=== PATIENT | male | born 1965 | race Caucasian/White ===

== ENCOUNTER 2024-11-05 21:30 | Emergency (ER) | payer MEDICAID ==
[~2024-11-05] VITALS: Ht 172.7 cm; Wt 85.5 kg
[~2024-11-05 21:30] MED LIST: ACET-2247 PO; AMOX-457 PO; BUDE10.26 IH; CHOL500013 PO; FOLI-130 PO; GABA-1216 PO; LANS-78 PO; MULT-1203 PO; TAMS0.4C94 PO
[2024-11-05 21:37] VITALS: TEMP 98.6
[2024-11-05 23:22] LABS: BASOPHILS % (AUTO) 0.6 % (0.0-2.0); EOSINOPHILS % (AUTO) 0.6 % (1.0-6.0); HEMATOCRIT 34.6 % (41-53); HEMOGLOBIN 11.2 g/dL (13.5-17.5); LYMPHOCYTES # (AUTO) 1.4 K/uL (1.0-4.8); LYMPHOCYTES % (AUTO) 16.4 % (22.0-44.0); MEAN CORPUSCULAR HEMOGLOBIN 28.3 pg (26.0-34.0); MEAN CORPUSCULAR HGB CONC 32.3 G/dL (31.0-37.0); MEAN CORPUSCULAR VOLUME 88 fL (80-100); MONOCYTES # (AUTO) 0.5 K/uL (0.1-1.0); MONOCYTES % (AUTO) 5.6 % (2.0-9.0); NEUTROPHILS # (AUTO) 6.8 K/uL (1.8-7.7); NEUTROPHILS % (AUTO) 76.8 % (40.0-70.0); PLATELET COUNT (AUTO) 177 K/uL (150-450); RED BLOOD CELL COUNT(AUTO) 3.96 MIL/uL (4.50-5.90); RED CELL DISTRIBUTION WIDTH 15.6 % (11.5-14.5); WHITE BLOOD COUNT (AUTO) 8.8 K/uL (4.5-11.0)
[2024-11-05 23:31] LABS: ANION GAP 10 mmol/L (8-16); CALCIUM, TOTAL 9.5 mg/dL (8.8-10.5); CARBON DIOXIDE 23 mmol/L (22-29); CHLORIDE 107 mmol/L (98-107); GLOMERULAR FILTR. RATE CALC 41 mL/min (>60); GLUCOSE,RANDOM 91 mg/dL (70-110); POTASSIUM 3.8 mmol/L (3.5-5.1); SODIUM SERUM 140 mmol/L (136-145); UREA NITROGEN, BLOOD 28 mg/dL (7-18)
[2024-11-05 23:33] LABS: APPEARANCE,URINE CLEAR (CLEAR); BILIRUBIN,URINE NEGATIVE (NEGATIVE); COLOR,URINE COLORLESS (YELLOW); GLUCOSE, URINE (UA) NEGATIVE (NEGATIVE); KETONES,URINE NEGATIVE (NEGATIVE); LEUKOCYTE ESTERASE ,URINE NEGATIVE (NEGATIVE); NITRATE,URINE NEGATIVE (NEGATIVE); OCCULT BLOOD,URINE NEGATIVE (NEGATIVE); PROTEIN,URINE NEGATIVE (NEGATIVE); SPECIFIC GRAVITIY, URINE 1.012 (1.003-1.030); UROBILINOGEN,URINE <=1.0 mg/dL (<=1.0)
[2024-11-05 23:37] LABS: ALANINE AMINOTRANSFERASE 37 U/L (12-78); ALBUMIN 2.9 g/dL (3.4-5.0); ALKALINE PHOSPHATASE 78 U/L (46-116); ASPARTATE AMINOTRANSFERASE 21 U/L (15-37); BILIRUBIN,TOTAL 0.3 mg/dL (0.1-1.0); TOTAL PROTEIN, SERUM 7.1 g/dL (6.4-8.2)
[2024-11-05 23:40] LABS: LACTIC ACID 0.8 mmol/L (0.4-2.0)
[2024-11-05] MEDS: FentaNYL CITRATE PF 100 MCG/2 ML VIAL IVP ONE (23:44)
[2024-11-06] MEDS: KETOROLAC TROMETHAMINE 30 MG/ML VIAL IVP ONE (00:01)
[2024-11-06 02:59] VITALS: BP 119/63; PULSE 59; RESP 16; O2SAT 96
[2024-11-08] MEDS ORDERED: DOXY-354 PO (15:57)
== END 2024-11-06 03:00 | disposition home or self-care (01) ==
LOC: EMS 21:30
DX: R10.9 Unspecified abdominal pain (principal); Z93.3 Colostomy status; Z79.51 Long term (current) use of inhaled steroids; Z79.899 Other long term (current) drug therapy
CPT/HCPCS: 99285; 96374; 80048; 80076; 81003; 83605; 85025; 87040; 36415; J1885; J3010

== ENCOUNTER 2024-12-10 21:00 | Emergency (ER) | payer MEDICAID ==
[~2024-12-10] VITALS: Ht 172.7 cm; Wt 90.0 kg
[~2024-12-10 21:00] MED LIST changes: -AMOX-457 PO; +DOXY-354 PO
[2024-12-10] MEDS ORDERED: IOHEXOL 350 MG/ML 100 ML VIAL ONE (22:53)
[2024-12-10] MEDS: CLOTRIMAZOLE 1% 15 GM CREAM TP ONE (23:01)
[2024-12-10 23:02] LABS: BASOPHILS % (AUTO) 0.8 % (0.0-2.0); EOSINOPHILS % (AUTO) 0.9 % (1.0-6.0); HEMATOCRIT 38.1 % (41-53); HEMOGLOBIN 12.4 g/dL (13.5-17.5); LYMPHOCYTES # (AUTO) 1.5 K/uL (1.0-4.8); LYMPHOCYTES % (AUTO) 20.5 % (22.0-44.0); MEAN CORPUSCULAR HEMOGLOBIN 28.1 pg (26.0-34.0); MEAN CORPUSCULAR HGB CONC 32.5 G/dL (31.0-37.0); MEAN CORPUSCULAR VOLUME 86 fL (80-100); MONOCYTES # (AUTO) 0.6 K/uL (0.1-1.0); MONOCYTES % (AUTO) 8.2 % (2.0-9.0); NEUTROPHILS # (AUTO) 5.2 K/uL (1.8-7.7); NEUTROPHILS % (AUTO) 69.6 % (40.0-70.0); PLATELET COUNT (AUTO) 194 K/uL (150-450); RED BLOOD CELL COUNT(AUTO) 4.41 MIL/uL (4.50-5.90); RED CELL DISTRIBUTION WIDTH 15.5 % (11.5-14.5); WHITE BLOOD COUNT (AUTO) 7.5 K/uL (4.5-11.0)
[2024-12-10] MEDS: CIPROFLOXACIN 400 MG/D5% WATER 200 ML IV ONE (23:04)
[2024-12-10] MEDS: MetroNIDAZOLE 500 MG/NACL 100 ML IV ONE (23:04)
[2024-12-10] MEDS: MORPHINE SULFATE 2 MG/ML SYRINGE IVP ONE (23:04)
[2024-12-10 23:17] LABS: LACTIC ACID 0.8 mmol/L (0.4-2.0)
[2024-12-10] MEDS: VANCOMYCIN 1.25 GM/WATER(PEG) 250 ML IV ONE (23:20)
[2024-12-10 23:22] LABS: ANION GAP 8 mmol/L (8-16); CALCIUM, TOTAL 9.2 mg/dL (8.8-10.5); CARBON DIOXIDE 24 mmol/L (22-29); CHLORIDE 106 mmol/L (98-107); GLOMERULAR FILTR. RATE CALC 32 mL/min (>60); GLUCOSE,RANDOM 97 mg/dL (70-110); POTASSIUM 4.2 mmol/L (3.5-5.1); SODIUM SERUM 138 mmol/L (136-145); UREA NITROGEN, BLOOD 32 mg/dL (7-18)
[2024-12-10 23:27] LABS: ALANINE AMINOTRANSFERASE 69 U/L (12-78); ALBUMIN 3.3 g/dL (3.4-5.0); ALKALINE PHOSPHATASE 90 U/L (46-116); ASPARTATE AMINOTRANSFERASE 44 U/L (15-37); BILIRUBIN,TOTAL 0.3 mg/dL (0.1-1.0); TOTAL PROTEIN, SERUM 7.8 g/dL (6.4-8.2)
[2024-12-11] MEDS ORDERED: METR500 PO (00:08)
[2024-12-11] MEDS ORDERED: CIPR500T10 PO (00:08)
[2024-12-11] MEDS ORDERED: DOXY-354 PO (00:08)
[2024-12-11 04:30] VITALS: BP 138/82; PULSE 83; RESP 18; TEMP 98.3; O2SAT 96
== END 2024-12-11 05:19 | disposition home or self-care (01) ==
LOC: EMS 21:00
DX: L03.311 Cellulitis of abdominal wall (principal); Z88.0 Allergy status to penicillin; Z88.1 Allergy status to other antibiotic agents; Z79.51 Long term (current) use of inhaled steroids; Z90.49 Acquired absence of other specified parts of digestive tract; Z79.899 Other long term (current) drug therapy
CPT/HCPCS: 99285; 74176; 96365; 96367; 96375; 80048; 80076; 83605; 85025; 87040; 36415; 96368; Q9967; J0744; J3490 ×2; J2270

== ENCOUNTER 2024-12-15 18:45 | Emergency (ER) | payer MEDICAID ==
[~2024-12-15] VITALS: Ht 172.7 cm; Wt 90.0 kg
[~2024-12-15 18:45] MED LIST changes: +CIPR500T10 PO; +METR500 PO
[2024-12-15 19:21] VITALS: BP 114/79; PULSE 80; RESP 18; TEMP 98.5; O2SAT 100
[2024-12-15 23:22] LABS: BASOPHILS % (AUTO) 0.7 % (0.0-2.0); EOSINOPHILS % (AUTO) 0.2 % (1.0-6.0); HEMATOCRIT 43.5 % (41-53); HEMOGLOBIN 14.4 g/dL (13.5-17.5); LYMPHOCYTES # (AUTO) 1.7 K/uL (1.0-4.8); LYMPHOCYTES % (AUTO) 24.9 % (22.0-44.0); MEAN CORPUSCULAR HEMOGLOBIN 28.6 pg (26.0-34.0); MEAN CORPUSCULAR HGB CONC 33.1 G/dL (31.0-37.0); MEAN CORPUSCULAR VOLUME 86 fL (80-100); MONOCYTES # (AUTO) 0.7 K/uL (0.1-1.0); MONOCYTES % (AUTO) 10.4 % (2.0-9.0); NEUTROPHILS # (AUTO) 4.5 K/uL (1.8-7.7); NEUTROPHILS % (AUTO) 63.8 % (40.0-70.0); PLATELET COUNT (AUTO) 185 K/uL (150-450); RED BLOOD CELL COUNT(AUTO) 5.03 MIL/uL (4.50-5.90); RED CELL DISTRIBUTION WIDTH 16.2 % (11.5-14.5)
[2024-12-15 23:29] LABS: CREATININE 2.57 mg/dL (0.60-1.30); POTASSIUM 3.7 mmol/L (3.5-5.1)
[2024-12-15] MEDS ORDERED: HYDR30CR3 TP (23:51)
[2024-12-16] MEDS: TraMADol HCL 50 MG TABLET PO ONE (00:04)
[2024-12-16] MEDS ORDERED: 0.9% SODIUM CHLORIDE 10 ML SYRINGE IVP PRN (00:15)
[2024-12-16] MEDS ORDERED: SODIUM CHLORIDE 0.9% 2,700 ML IV ONE (00:15)
== END 2024-12-16 02:47 | disposition left against medical advice (07) ==
LOC: EMS 19:02
DX: L03.311 Cellulitis of abdominal wall (principal); L30.9 Dermatitis, unspecified; Z79.51 Long term (current) use of inhaled steroids; Z79.899 Other long term (current) drug therapy; Z88.0 Allergy status to penicillin; Z88.1 Allergy status to other antibiotic agents; Z93.3 Colostomy status
CPT/HCPCS: 74022; 80048; 85025; 93005; 99284

== ENCOUNTER 2025-01-08 09:35 | Emergency (ER) | payer MEDICAID ==
[~2025-01-08] VITALS: Ht 172.7 cm; Wt 90.9 kg
[~2025-01-08 09:35] MED LIST changes: +ACID1GRA PO; -CIPR500T10 PO; -DOXY-354 PO; +HYDR30CR3 TP
[2025-01-08 11:14] VITALS: TEMP 98.2
[2025-01-08 11:51] LABS: CALCIUM, TOTAL 8.7 mg/dL (8.8-10.5); CREATININE 1.8 mg/dL (0.60-1.30); POTASSIUM 4.6 mmol/L (3.5-5.1)
[2025-01-08 11:52] LABS: BASOPHILS % (AUTO) 1.1 % (0.0-2.0); EOSINOPHILS % (AUTO) 0.6 % (1.0-6.0); HEMATOCRIT 36.7 % (41-53); LYMPHOCYTES # (AUTO) 1.3 K/uL (1.0-4.8); LYMPHOCYTES % (AUTO) 29.1 % (22.0-44.0); MEAN CORPUSCULAR HEMOGLOBIN 29.3 pg (26.0-34.0); MEAN CORPUSCULAR HGB CONC 32.7 G/dL (31.0-37.0); MEAN CORPUSCULAR VOLUME 90 fL (80-100); MONOCYTES # (AUTO) 0.3 K/uL (0.1-1.0); MONOCYTES % (AUTO) 7.9 % (2.0-9.0); NEUTROPHILS # (AUTO) 2.7 K/uL (1.8-7.7); NEUTROPHILS % (AUTO) 61.3 % (40.0-70.0); PLATELET COUNT (AUTO) 178 K/uL (150-450); RED BLOOD CELL COUNT(AUTO) 4.08 MIL/uL (4.50-5.90); RED CELL DISTRIBUTION WIDTH 18.3 % (11.5-14.5); WHITE BLOOD COUNT (AUTO) 4.4 K/uL (4.5-11.0)
[2025-01-08 12:15] VITALS: BP 114/68; PULSE 79; RESP 17; O2SAT 98
[2025-01-08] MEDS: ONDANSETRON HCL 4 MG/2 ML VIAL IVP ONE (13:32)
[2025-01-08] MEDS: HYDROmorphone HCL 2 MG/ML SYRINGE IVP ONE (13:33)
== END 2025-01-08 14:46 | disposition home or self-care (01) ==
LOC: EMS 09:43
DX: E86.0 Dehydration (principal); R10.84 Generalized abdominal pain; Z79.51 Long term (current) use of inhaled steroids; Z79.899 Other long term (current) drug therapy; Z88.0 Allergy status to penicillin; Z88.1 Allergy status to other antibiotic agents; Z93.3 Colostomy status
CPT/HCPCS: 99284; 96374; 96375; 80048; 85025; 36415; J1171; J2405

== ENCOUNTER 2025-01-17 07:30 | Emergency (ER) | payer MEDICAID ==
[~2025-01-17] VITALS: Ht 167.6 cm; Wt 90.9 kg
[2025-01-17 07:34] VITALS: TEMP 98.3
[2025-01-17 08:17] LABS: BASOPHILS % (AUTO) 0.6 % (0.0-2.0); EOSINOPHILS % (AUTO) 0.6 % (1.0-6.0); HEMATOCRIT 35.7 % (41-53); HEMOGLOBIN 11.8 g/dL (13.5-17.5); LYMPHOCYTES # (AUTO) 0.9 K/uL (1.0-4.8); LYMPHOCYTES % (AUTO) 17.8 % (22.0-44.0); MEAN CORPUSCULAR HEMOGLOBIN 29.2 pg (26.0-34.0); MEAN CORPUSCULAR VOLUME 89 fL (80-100); MONOCYTES # (AUTO) 0.5 K/uL (0.1-1.0); MONOCYTES % (AUTO) 8.8 % (2.0-9.0); NEUTROPHILS # (AUTO) 3.8 K/uL (1.8-7.7); NEUTROPHILS % (AUTO) 72.2 % (40.0-70.0); PLATELET COUNT (AUTO) 163 K/uL (150-450); RED BLOOD CELL COUNT(AUTO) 4.03 MIL/uL (4.50-5.90); RED CELL DISTRIBUTION WIDTH 17.7 % (11.5-14.5); WHITE BLOOD COUNT (AUTO) 5.3 K/uL (4.5-11.0)
[2025-01-17] MEDS: HYDROmorphone HCL 2 MG/ML SYRINGE IM ONE (08:17)
[2025-01-17] MEDS: ONDANSETRON HCL 4 MG/2 ML VIAL IM ONE (08:17)
[2025-01-17] MEDS: LACTOBACILLUS ACIDOPHILUS/BULGARICUS GRANULES PACKET PO ONE (08:30)
[2025-01-17 08:31] LABS: ANION GAP 13 mmol/L (8-16); CALCIUM, TOTAL 8.9 mg/dL (8.8-10.5); CARBON DIOXIDE 21 mmol/L (22-29); CHLORIDE 107 mmol/L (98-107); CREATININE 1.63 mg/dL (0.60-1.30); GLOMERULAR FILTR. RATE CALC 43 mL/min (>60); GLUCOSE,RANDOM 99 mg/dL (70-110); POTASSIUM 3.3 mmol/L (3.5-5.1); SODIUM SERUM 141 mmol/L (136-145); UREA NITROGEN, BLOOD 31 mg/dL (7-18)
[2025-01-17 08:40] LABS: ALANINE AMINOTRANSFERASE 89 U/L (12-78); ALBUMIN 3.2 g/dL (3.4-5.0); ALKALINE PHOSPHATASE 66 U/L (46-116); ASPARTATE AMINOTRANSFERASE 53 U/L (15-37); BILIRUBIN,TOTAL 0.6 mg/dL (0.1-1.0); LIPASE 32 U/L (16-77); TOTAL PROTEIN, SERUM 7.4 g/dL (6.4-8.2); TROPONIN I-HIGH SENSITIVITY 6 ng/L (<76)
[2025-01-17] MEDS: HYDROCODONE/ACETAMINOPHEN 5-325 MG TABLET PO ONE (10:13)
[2025-01-17] MEDS ORDERED: HYDR-4062 PO (10:14)
[2025-01-17] MEDS ORDERED: LACT1CAP81 PO (10:14)
[2025-01-17 10:42] VITALS: BP 142/99; PULSE 82; RESP 16; O2SAT 97
== END 2025-01-17 10:44 | disposition home or self-care (01) ==
LOC: EMS 07:33
DX: N39.0 Urinary tract infection, site not specified (principal); R10.84 Generalized abdominal pain; Z93.3 Colostomy status; Z88.1 Allergy status to other antibiotic agents; Z88.0 Allergy status to penicillin; Z79.899 Other long term (current) drug therapy; Z79.51 Long term (current) use of inhaled steroids
CPT/HCPCS: 99284; 80048; 80076; 83690; 84484; 85025; 36415; 96372; J1171; J2405

== ENCOUNTER 2025-01-20 10:21 | Emergency (ER) | payer MEDICAID ==
[~2025-01-20] VITALS: Ht 172.7 cm; Wt 90.9 kg
[~2025-01-20 10:21] MED LIST changes: +HYDR-4062 PO; +LACT1CAP81 PO
[2025-01-20 10:27] VITALS: TEMP 98.2
[2025-01-20] MEDS: DICYCLOMINE HCL 10 MG CAPSULE PO ONE (11:07)
[2025-01-20 11:39] LABS: APPEARANCE,URINE CLEAR (CLEAR); BILIRUBIN,URINE NEGATIVE (NEGATIVE); COLOR,URINE LIGHT YELLOW (YELLOW); GLUCOSE, URINE (UA) NEGATIVE (NEGATIVE); KETONES,URINE NEGATIVE (NEGATIVE); LEUKOCYTE ESTERASE ,URINE SMALL (NEGATIVE); NITRATE,URINE NEGATIVE (NEGATIVE); OCCULT BLOOD,URINE SMALL (NEGATIVE); PH,URINE 5.5 (5.0-8.0); PROTEIN,URINE TRACE mg/dL (NEGATIVE); SPECIFIC GRAVITIY, URINE 1.019 (1.003-1.030); UROBILINOGEN,URINE <=1.0 mg/dL (<=1.0)
[2025-01-20 12:03] LABS: BACTERIA,URINE None Seen /HPF (None Seen)
[2025-01-20 12:18] VITALS: BP 128/81; PULSE 73; RESP 18; O2SAT 99
[2025-01-20] MEDS ORDERED: CEPH-558 PO (12:27)
== END 2025-01-20 12:33 | disposition home or self-care (01) ==
LOC: EMS 10:27
DX: N30.90 Cystitis, unspecified without hematuria (principal); R19.7 Diarrhea, unspecified; Z88.0 Allergy status to penicillin; Z88.1 Allergy status to other antibiotic agents; Z79.51 Long term (current) use of inhaled steroids; Z87.440 Personal history of urinary (tract) infections; Z79.899 Other long term (current) drug therapy
CPT/HCPCS: 81001; 99283

== ENCOUNTER 2025-02-01 08:26 | Emergency (ER) | payer MEDICAID ==
[~2025-02-01] VITALS: Ht 172.7 cm; Wt 96.0 kg
[~2025-02-01 08:26] MED LIST changes: +CEPH-558 PO
[2025-02-01 08:48] VITALS: TEMP 98.3
[2025-02-01] MEDS ORDERED: SODIUM CHLORIDE 0.9% 100 ML ONE (09:05)
[2025-02-01] MEDS ORDERED: IOHEXOL 350 MG/ML 100 ML VIAL ONE (09:05)
[2025-02-01 09:20] LABS: BASOPHILS % (AUTO) 0.2 % (0.0-2.0); EOSINOPHILS % (AUTO) 0.5 % (1.0-6.0); HEMATOCRIT 37.4 % (41-53); HEMOGLOBIN 12.3 g/dL (13.5-17.5); LYMPHOCYTES # (AUTO) 0.7 K/uL (1.0-4.8); LYMPHOCYTES % (AUTO) 7.2 % (22.0-44.0); MEAN CORPUSCULAR HEMOGLOBIN 28.7 pg (26.0-34.0); MEAN CORPUSCULAR HGB CONC 32.7 G/dL (31.0-37.0); MEAN CORPUSCULAR VOLUME 88 fL (80-100); MONOCYTES # (AUTO) 0.5 K/uL (0.1-1.0); MONOCYTES % (AUTO) 5.4 % (2.0-9.0); NEUTROPHILS # (AUTO) 8.5 K/uL (1.8-7.7); PLATELET COUNT (AUTO) 182 K/uL (150-450); RED BLOOD CELL COUNT(AUTO) 4.26 MIL/uL (4.50-5.90); RED CELL DISTRIBUTION WIDTH 16.5 % (11.5-14.5); WHITE BLOOD COUNT (AUTO) 9.8 K/uL (4.5-11.0)
[2025-02-01 09:21] LABS: NEUTROPHILS % (AUTO) 86.7 % (40.0-70.0)
[2025-02-01 09:35] LABS: CALCIUM, TOTAL 9.2 mg/dL (8.8-10.5); CREATININE 1.73 mg/dL (0.60-1.30); POTASSIUM 3.7 mmol/L (3.5-5.1)
[2025-02-01] MEDS: MORPHINE SULFATE 2 MG/ML SYRINGE IVP ONE (09:35)
[2025-02-01] MEDS: ONDANSETRON HCL 4 MG/2 ML VIAL IVP ONE (09:35)
[2025-02-01] MEDS: SODIUM CHLORIDE 0.9% 1,000 ML IV ONE (09:36)
[2025-02-01 09:39] LABS: ALBUMIN 3.5 g/dL (3.4-5.0); BILIRUBIN,DIRECT 0.2 mg/dL (0.00-0.20); BILIRUBIN,TOTAL 0.7 mg/dL (0.1-1.0); TOTAL PROTEIN, SERUM 7.8 g/dL (6.4-8.2)
[2025-02-01] MEDS ORDERED: ONDA-104 PO (11:32)
[2025-02-01 11:38] LABS: APPEARANCE,URINE CLEAR (CLEAR); BILIRUBIN,URINE NEGATIVE (NEGATIVE); COLOR,URINE LIGHT YELLOW (YELLOW); GLUCOSE, URINE (UA) NEGATIVE (NEGATIVE); KETONES,URINE NEGATIVE (NEGATIVE); LEUKOCYTE ESTERASE ,URINE SMALL (NEGATIVE); NITRATE,URINE NEGATIVE (NEGATIVE); OCCULT BLOOD,URINE TRACE (NEGATIVE); PH,URINE 5.5 (5.0-8.0); PROTEIN,URINE 30-70 mg/dL (NEGATIVE); SPECIFIC GRAVITIY, URINE 1.035 (1.003-1.030); UROBILINOGEN,URINE <=1.0 mg/dL (<=1.0)
[2025-02-01 11:41] VITALS: BP 117/80; PULSE 83; RESP 18; O2SAT 95
[2025-02-01 11:42] LABS: BACTERIA,URINE Few /HPF (None Seen); RBC,URINE 0-2 /HPF (0-2)
[2025-02-01] MEDS ORDERED: LEVO750T68 PO (11:45)
[2025-02-01] MEDS ORDERED: ACET-3385 PO (11:46)
[2025-02-01] MEDS: LEVOFLOXACIN 250 MG TABLET PO ONE (11:54)
== END 2025-02-01 12:23 | disposition home or self-care (01) ==
LOC: EMS 08:29
DX: N39.0 Urinary tract infection, site not specified (principal); K40.90 Unilateral inguinal hernia, without obstruction or gangrene, not specified as recurrent; Z79.51 Long term (current) use of inhaled steroids; Z79.899 Other long term (current) drug therapy; Z88.0 Allergy status to penicillin; Z88.1 Allergy status to other antibiotic agents; Z90.49 Acquired absence of other specified parts of digestive tract; Z91.199 Patient's noncompliance with other medical treatment and regimen due to unspecified reason; Z93.2 Ileostomy status
CPT/HCPCS: 99285; 74177; 96374; 96361; 96375; 80048; 80076; 81001; 83690; 85025; 87086; 36415; Q9967; J2270; J2405; J7030; J7050

== ENCOUNTER 2025-03-05 11:21 | Emergency (ER) | payer MEDICAID ==
[~2025-03-05] VITALS: Ht 172.7 cm; Wt 90.9 kg
[~2025-03-05 11:21] MED LIST changes: +ACET-3385 PO; +LEVO750T68 PO; +ONDA-104 PO
[2025-03-05 12:06] LABS: BASOPHILS % (AUTO) 0.6 % (0.0-2.0); EOSINOPHILS % (AUTO) 0.3 % (1.0-6.0); HEMATOCRIT 43.5 % (41-53); HEMOGLOBIN 14.3 g/dL (13.5-17.5); LYMPHOCYTES # (AUTO) 1.6 K/uL (1.0-4.8); LYMPHOCYTES % (AUTO) 18.7 % (22.0-44.0); MEAN CORPUSCULAR HEMOGLOBIN 28.7 pg (26.0-34.0); MEAN CORPUSCULAR HGB CONC 32.8 G/dL (31.0-37.0); MEAN CORPUSCULAR VOLUME 87 fL (80-100); MONOCYTES # (AUTO) 0.5 K/uL (0.1-1.0); MONOCYTES % (AUTO) 6.3 % (2.0-9.0); NEUTROPHILS # (AUTO) 6.3 K/uL (1.8-7.7); NEUTROPHILS % (AUTO) 74.1 % (40.0-70.0); PLATELET COUNT (AUTO) 225 K/uL (150-450); RED BLOOD CELL COUNT(AUTO) 4.98 MIL/uL (4.50-5.90); RED CELL DISTRIBUTION WIDTH 16.9 % (11.5-14.5); WHITE BLOOD COUNT (AUTO) 8.5 K/uL (4.5-11.0)
[2025-03-05 12:13] LABS: CALCIUM, TOTAL 9.1 mg/dL (8.8-10.5); CREATININE 2.93 mg/dL (0.60-1.30); POTASSIUM 3.4 mmol/L (3.5-5.1)
[2025-03-05] MEDS: LIDOCAINE 2% VISCOUS 15 ML SOLUTION UDCUP PO ONE (13:10)
[2025-03-05] MEDS: MAG HYDROX/ALUMINUM HYD/SIMETH 30 ML SUSPENSION UDCUP PO ONE (13:10)
[2025-03-05 13:58] LABS: APPEARANCE,URINE CLEAR (CLEAR); BILIRUBIN,URINE NEGATIVE (NEGATIVE); COLOR,URINE YELLOW (YELLOW); GLUCOSE, URINE (UA) NEGATIVE (NEGATIVE); KETONES,URINE NEGATIVE (NEGATIVE); LEUKOCYTE ESTERASE ,URINE SMALL (NEGATIVE); NITRATE,URINE NEGATIVE (NEGATIVE); OCCULT BLOOD,URINE LARGE (NEGATIVE); PH,URINE 5.5 (5.0-8.0); PH,URINE DRUG SCREEN 5.5 (5.0-8.0); PROTEIN,URINE 30-70 mg/dL (NEGATIVE); SPECIFIC GRAVITIY, URINE 1.019 (1.003-1.030); UROBILINOGEN,URINE <=1.0 mg/dL (<=1.0)
[2025-03-05 14:08] LABS: AMPHET/METH SCREEN,URINE POSITIVE (NEGATIVE); BARBITURATE SCREEN, URINE NEGATIVE (NEGATIVE); BENZODIAZEPINES SCREEN,URINE NEGATIVE (NEGATIVE); CANNABINOID SCREEN,URINE POSITIVE (NEGATIVE); COCAINE SCREEN,URINE NEGATIVE (NEGATIVE); METHADONE SCREEN, URINE NEGATIVE (NEGATIVE); OPIATE SCREEN,URINE NEGATIVE (NEGATIVE); PHENCYCLIDINE SCREEN,URINE NEGATIVE (NEGATIVE)
[2025-03-05 14:20] LABS: BACTERIA,URINE Few /HPF (None Seen); SQUAMOUS EPITHELIAL CELL,UR Few /LPF (None Seen)
[2025-03-05 15:01] LABS: ALCOHOL, URINE DRUG SCREEN NEGATIVE (NEGATIVE)
[2025-03-05 19:20] VITALS: TEMP 97.1
[2025-03-05] MEDS: SODIUM CHLORIDE 0.9% 1,000 ML IV ONE (20:00)
[2025-03-05] MEDS: KETOROLAC TROMETHAMINE 30 MG/ML VIAL IVP ONE (20:00)
[2025-03-05] MEDS: FAMOTIDINE 20 MG/2 ML VIAL IVP ONE (20:01)
[2025-03-05] MEDS ORDERED: FAMO20 PO (20:56)
[2025-03-05 21:12] VITALS: BP 125/56; PULSE 86; RESP 16; O2SAT 96
== END 2025-03-05 21:00 | disposition home or self-care (01) ==
LOC: EMS 11:22
DX: N20.0 Calculus of kidney (principal); K44.9 Diaphragmatic hernia without obstruction or gangrene; K21.9 Gastro-esophageal reflux disease without esophagitis; Z88.0 Allergy status to penicillin; Z88.1 Allergy status to other antibiotic agents; Z79.51 Long term (current) use of inhaled steroids; Z79.899 Other long term (current) drug therapy
CPT/HCPCS: 99285; 74176; 96374; 76700; 96361; 96375; 80048; 83690; 85025; 87086; 36415; 80307; 81001; J1885; J3490; J7030